=== PATIENT | female | born 1980 | race African-American/Black ===

== ENCOUNTER 2017-03-07 11:07 | Emergency (ER) | payer SELFPAY | END 2017-03-07 11:56 | disposition home or self-care (01) | LOC: BURERS 11:07 | DX: R51 Headache (principal); I25.2 Old myocardial infarction; F41.9 Anxiety disorder, unspecified; F32.9 Major depressive disorder, single episode, unspecified; Z87.891 Personal history of nicotine dependence | CPT/HCPCS: 99282 ==